=== PATIENT | male | born 1960 | race Caucasian/White ===

== ENCOUNTER 2019-03-03 11:48 | Emergency (ER) | payer OTHER ==
[2019-03-03] MEDS ORDERED: MECLIZINE HCL 12.5 MG TAB ONE (12:25)
[2019-03-03] MEDS ORDERED: ONDANSETRON 4 MG/2 ML VIAL ONE (12:25)
[2019-03-03] MEDS ORDERED: NA CHLORIDE 0.9% 1,000 ML ONE ×2 (12:25→13:58)
[2019-03-03 12:58] LABS: Basophils % 0.2 % (0-1.3); Hematocrit 40.8 % (39.6-49.0); Lymphocytes % 35.8 % (15.3-44.8); MPV 8.6 fL (7.6-11.3); RBC Red Blood Cell Count 4.63 M/uL (4.33-5.43)
[2019-03-03 13:12] LABS: BUN Blood Urea Nitrogen 23 mg/dL (7-18); Bicarbonate 19 mmol/L (21-32); Glucose Level 116 mg/dL (74-106); Potassium 3.6 mmol/L (3.5-5.1); Sodium Level 141 mmol/L (136-145); Troponin (Emerg Dept Use Only) < 0.02 ng/mL (0.0-0.045)
--- NOTE | 2019-03-03 14:09 | RAD REPORT ---
EXAM DESCRIPTION: CT - Head Brain Wo Cont - 03/03/2019 1:44 pm CLINICAL HISTORY: Dizziness, headache, syncope COMPARISON: None. TECHNIQUE: Axial 5 mm thick images of the head were obtained without IV contrast. All CT scans are performed using dose optimization technique as appropriate and may include automated exposure control or mA/KV adjustment according to patient size. FINDINGS: No intracranial hemorrhage, mass, edema or shift of mid-line structures. No acute infarcti on changes seen. No abnormal extra-axial fluid collections. Ventricles are normal. Mastoid air cells and visualized portions of the paranasal sinuses are clear. No acute bony findings. IMPRESSION: Negative non-contrast CT head examination.
--- NOTE | 2019-03-03 14:11 | RAD REPORT ---
EXAM DESCRIPTION: CT - Head angio - 03/03/2019 1:47 pm CLINICAL HISTORY: DIZZINESS, weakness, syncope TECHNIQUE: During dynamic enhancement using nonionic IV contrast, axial 1 millimeter thick images of the head were obtained. Sagittal and axial reconstruction images were generated using MIP technique and reviewed. All CT scans are performed using dose optimization technique as appropriate and may include automated exposure control or mA/KV adjustment according to patient size. FINDINGS: No aneurysm or vascular malformation identified. Major venous sinuses are patent. No stenosis, named branch occlusion, vasculitis or other significant vascular finding identifiable. IMPRESSION: Negative CT angio head examination.
--- NOTE | 2019-03-03 14:14 | RAD REPORT ---
EXAM DESCRIPTION: CT - Neck Angio - 03/03/2019 1:46 pm CLINICAL HISTORY: dizziness TECHNIQUE: During dynamic enhancement using nonionic IV contrast, axial 2 mm thick images of the nec k were obtained. Sagittal and axial reconstruction images were generated using MIP technique and revi ewed. All CT scans are performed using dose optimization technique as appropriate and may include automated exposure control or mA/KV adjustment according to patient size. COMPARISON: None FINDINGS: No aneurysm or vascular malformation identified. No carotid or vertebral dissection. No aortic arch or great vessel origin abnormality seen. Vertebral artery origins unremarkable as well . No significant stenosis, vasculitis or other significant carotid artery finding. No focal abnormali ty of either vertebral artery. Basilar artery is normal. IMPRESSION: Negative CT angio neck examination for acute or significant finding.
[2019-03-03 15:47] LABS: Urine Blood NEGATIVE (NEG); Urine Glucose NEGATIVE (NEG); Urine Protein NEGATIVE (NEG); Urine Specific Gravity >1.030 (1.005-1.030)
[2019-03-03 16:59] LABS: Potassium 4.4 mmol/L (3.5-5.1)
--- NOTE | 2019-03-03 17:10 | ER ---
Nurse's Notes [facility] Name: Boo Watkins Age: 58 yrs Sex: Male : 1960 Arrival Date: 03/03/2019 Time: 11:59 Bed 18 Private MD: Diagnosis: Vertigo;Dehydration;Acidosis Presentation: 03/03 11:52 Presenting complaint: EMS states: pt states he was sitting at work in a meeting, became tw2 lightheaded and says the room was spinning, he was diaphoretic when we got there, we started a line and gave about 450 ml NS, vs 149/115, hr 64 rr 16, ekg unremarkable. Transition of care: patient was not received from another setting of care. Onset of symptoms was March 03, 2019. Risk Assessment: Do you want to hurt yourself or someone else? Patient reports no desire to harm self or others. Initial Sepsis Screen: Does the patient meet any 2 criteria? No. Patient's initial sepsis screen is negative. Does the patient have a suspected source of infection? No. Patient's initial sepsis screen is negative. Care prior to arrival: Medication(s) given: Normal saline infusion, 450 ml IV initiated. 20 GA, in the left wrist. 11:52 Method Of Arrival: EMS: [facility] tw2 11:52 Acuity: NORI 2 tw2 Triage Assessment: 12:03 General: Appears in no apparent distress. uncomfortable, Behavior is calm, cooperative, jl7 appropriate for age. Pain: Denies pain. EENT: No deficits noted. Neuro: Level of Consciousness is awake, alert, obeys commands, Oriented to person, place, time, situation, Moves all extremities. Full function Speech is normal. Cardiovascular: Heart tones S1 S2 present Patient's skin is warm and dry. Respiratory: Airway is patent Respiratory effort is even, unlabored, Respiratory pattern is regular, symmetrical, Breath sounds are clear bilaterally. GI: Abd is soft and non tender X 4 quads. Reports nausea. : No signs and/or symptoms were reported regarding the genitourinary system. Derm: Skin is pink, warm \T\ dry. Musculoskeletal: No signs and/or symptoms reported regarding the musculoskeletal system. Historical: - Allergies: 12:02 No Known Allergies; tw2 - PMHx: 12:02 None; tw2 - PSHx: 12:02 None; tw2 - Immunization history:: Adult Immunizations unknown. - Social history:: Smoking status: Patient/guardian denies using tobacco. - Family history:: not pertinent. - Ebola Screening: : No symptoms or risks identified at this time. - Hospitalizations: : No recent hospitalization is reported. Screenin:00 Abuse screen: Denies threats or abuse. Denies injuries from another. Nutritional jl7 screening: No deficits noted. Tuberculosis screening: No symptoms or risk factors identified. Fall Risk IV access (20 points). Total Johnson Fall Scale indicates No Risk (0-24 pts). Assessment: 12:00 General: See triage assessment. jl7 12:05 Reassessment: Dr. Isidro at bedside. jl7 13:00 Reassessment: Patient appears in no apparent distress at this time. Patient and/or [facility] family updated on plan of care and expected duration. Pain level reassessed. Patient is alert, oriented x 3, equal unlabored respirations, skin warm/dry/pink. Patient states symptoms have improved. 14:06 Reassessment: Patient appears in no apparent distress at this time. No changes from jl7 previously documented assessment. Patient and/or family updated on plan of care and expected duration. Pain level reassessed. Patient is alert, oriented x 3, equal unlabored respirations, skin warm/dry/pink. Patient states feeling better. 15:00 Reassessment: Patient appears in no apparent distress at this time. Patient and/or jl7 family updated on plan of care and expected duration. Pain level reassessed. Patient is alert, oriented x 3, equal unlabored respirations, skin warm/dry/pink. Patient denies pain at this time. 16:00 Reassessment: Patient appears in no apparent distress at this time. No changes from jl7 previously documented assessment. Patient and/or family updated on plan of care and expected duration. Pain level reassessed. Patient is alert, oriented x 3, equal unlabored respirations, skin warm/dry/pink. Vital Signs: 12:03 BP 139 / 88; Pulse 57; Resp 13 S; Pulse Ox 98% on R/A; jl7 12:55 BP 147 / 94; Pulse 62; Resp 14 S; Temp 97.7(O); Pulse Ox 98% on R/A; Pain 0/10; jl7 14:07 BP 153 / 93; Pulse 66; Resp 16 S; Pulse Ox 100% on R/A; jl7 16:00 BP 157 / 97; Pulse 68; Resp 16 S; Pulse Ox 100% on R/A; jl7 ED Course: 11:59 Patient arrived in ED. tw2 12:00 Patient has correct armband on for positive identification. Placed in gown. Bed in low jl7 position. Call light in reach. Side rails up X2. monitoring coordinator on. Pulse ox on. NIBP on. Warm blanket given. 12:00 Maintain EMS IV. Dressing intact. Good blood return noted. Site clean \T\ dry. Gauge \T\ jl 7 site: 20 left wrist. 12:02 Triage completed. tw2 12:02 Chavez Isidro MD is Attending Physician. rn 12:03 Kvng Cope RN is Primary Nurse. jl7 12:03 Arm band placed on right wrist. jl7 12:30 Initial lab(s) drawn, by me, sent to lab. jl7 14:09 CT Head Brain wo Cont In Process Unspecified. EDMS 14:09 CT Head Angio In Process Unspecified. EDMS 14:09 CT Neck Angio In Process Unspecified. EDMS 15:41 Repeat lab(s) drawn. by me, sent to lab. jl7 16:55 Awaiting lab results. jl7 17:09 Trung Armas MD is Referral Physician. rn 17:31 No provider procedures requiring assistance completed. IV discontinued, intact, jl7 bleeding controlled, No redness/swelling at site. Pressure dressing applied. Administered Medications: 12:30 Drug: Meclizine 50 mg Route: PO; jl7 13:00 Follow up: Response: No adverse reaction; Marked relief of symptoms jl7 12:31 Drug: NS 0.9% 1000 ml Route: IV; Rate: 1000 ml; Site: left wrist; jl7 03/04 13:30 Follow up: Response: No adverse reaction; IV Status: Completed infusion; IV Intake: 7 1000ml 03/03 12:31 Drug: Zofran 4 mg Route: IVP; Site: left wrist; jl7 12:45 Follow up: Response: No adverse reaction; Nausea is decreased jl7 14:30 Drug: NS 0.9% 1000 ml Route: IV; Rate: 1000 ml; Site: left wrist; jl7 15:42 Follow up: Response: No adverse reaction; IV Status: Completed infusion; IV Intake: jl7 1000ml 17:09 CANCELLED (Other Intervention Used): Calcium Gluconate 1 grams IVPB once over 60 mins; aa5 (mix in NS 100 mL) 17:31 Drug: Calcium Carbonate 500 mg 2 tablet Route: PO; jl7 17:31 Follow up: Response: Medication administered at discharge. jl7 Intake: 15:42 IV: 1000ml; Total: 1000ml. jl7 03/04 13:30 IV: 1000ml; Total: 2000ml. jl7 Outcome: 03/03 17:09 Discharge ordered by . rn 17:31 Discharged to home ambulatory. jl7 17:31 Condition: stable 17:31 Discharge instructions given to patient, family, Instructed on discharge instructions, follow up and referral plans. medication usage, Demonstrated understanding of instructions, follow-up care, medications, Prescriptions given X 2. 17:32 Patient left the ED. jl7 Signatures: Dispatcher [employer] EDMS Chavez Isidro MD MD rn Wise, Tara, RN RN tw2 Kvng Cope RN RN jl7 Tamy Goins RN aa5
--- NOTE | 2019-03-03 17:11 | EDPHYS ---
Physician Documentation [facility] Name: Boo Watkins Age: 58 yrs Sex: Male : 1960 Arrival Date: 03/03/2019 Time: 11:59 Bed 18 Private MD: ED Physician Chavez Isidro HPI: 03/03 14:10 This 58 yrs old Male presents to ER via EMS with complaints of Dizziness, rn Lightheaded. 14:10 The patient presents with sense of spinning. Onset: The symptoms/episode began/occurred rn just prior to arrival. Context: occurred at work, occurred while the patient was at rest. Modifying factors: The symptoms are alleviated by nothing, the symptoms are aggravated by movement of head, standing up, changing position. Severity of symptoms: At their worst the symptoms were moderate in the emergency department the symptoms have improved. The patient has not experienced similar symptoms in the past. The patient has not recently seen a physician. Reports sudden onset of spinning sensation, lightheaded, assoc with nausea and vomiting, goes away when holding head still, worse with head movement or change in position, no head injury, no focal neuro complaint, no chest pain/sob/abd pain.. Historical: - Allergies: 12:02 No Known Allergies; tw2 - PMHx: 12:02 None; tw2 - PSHx: 12:02 None; tw2 - Immunization history:: Adult Immunizations unknown. - Social history:: Smoking status: Patient/guardian denies using tobacco. - Family history:: not pertinent. - Ebola Screening: : No symptoms or risks identified at this time. - Hospitalizations: : No recent hospitalization is reported. ROS: 14:10 Constitutional: Negative for fever, chills, and weight loss, Eyes: Negative for injury, rn pain, redness, and discharge, ENT: Negative for injury, pain, and discharge, Neck: Negative for injury, pain, and swelling, Cardiovascular: Negative for chest pain, palpitations, and edema, Respiratory: Negative for shortness of breath, cough, wheezing, and pleuritic chest pain, Abdomen/GI: Negative for abdominal pain, diarrhea, and constipation, Back: Negative for injury and pain, : Negative for injury, bleeding, discharge, and swelling, MS/Extremity: Negative for injury and deformity, Skin: Negative for injury, rash, and discoloration, Neuro: Negative for headache, weakness, numbness, tingling, and seizure. Exam: 14:10 Constitutional: This is a well developed, well nourished patient who is awake, alert, rn and in no acute distress. Head/Face: Normocephalic, atraumatic. Eyes: Pupils equal round and reactive to light, extra-ocular motions intact. Lids and lashes normal. Conjunctiva and sclera are non-icteric and not injected. Cornea within normal limits. Periorbital areas with no swelling, redness, or edema. ENT: dry MM Neck: Trachea midline, no thyromegaly or masses palpated, and no cervical lymphadenopathy. Supple, full range of motion without nuchal rigidity, or vertebral point tenderness. No Meningismus. Cardiovascular: Regular rate and rhythm with a normal S1 and S2. No pulse deficits. Respiratory: Lungs have equal breath sounds bilaterally, clear to auscultation. No increased work of breathing, no retractions or nasal flaring. Abdomen/GI: Soft, non-tender MS/ Extremity: Pulses equal, no cyanosis. Neurovascular intact. Full, normal range of motion. Equal circumference. Neuro: Awake and alert, GCS 15, oriented to person, place, time, and situation. Cranial nerves II-XII grossly intact. Motor strength 5/5 in all extremities. Sensory grossly intact. Cerebellar exam normal. Normal finger to nose and heel to kim. Vital Signs: 12:03 BP 139 / 88; Pulse 57; Resp 13 S; Pulse Ox 98% on R/A; jl7 12:55 BP 147 / 94; Pulse 62; Resp 14 S; Temp 97.7(O); Pulse Ox 98% on R/A; Pain 0/10; jl7 14:07 BP 153 / 93; Pulse 66; Resp 16 S; Pulse Ox 100% on R/A; jl7 16:00 BP 157 / 97; Pulse 68; Resp 16 S; Pulse Ox 100% on R/A; jl7 MDM: 12:02 Patient medically screened. rn 15:24 Differential diagnosis: cardiac arrhythmia, CVA, generalized weakness, rn hyperventilation, hypovolemia, idiopathic dizziness, near-syncope, TIA, vertigo. Data reviewed: vital signs, nurses notes. ED course: Pt feels much better, states urine has cleared up since fluids, and ambulatory without assistance to bathroom. NO further episodes, ct head and angio of head and neck no acute findings. + acidosis in original BMP but patient working a lot outdoors in heat lately, is remodeling house, and thinks has been dehydrated. Will repeat BMP now that fluids have finished. Plan on dc home with Dr. Pawel andrade/pawan . 17:07 Counseling: I had a detailed discussion with the patient and/or guardian regarding: the rn historical points, exam findings, and any diagnostic results supporting the discharge/admit diagnosis, lab results, radiology results, the need for outpatient follow up, to return to the emergency department if symptoms worsen or persist or if there are any questions or concerns that arise at home. Response to treatment: the patient's symptoms have resolved after treatment, the patient's condition has returned to base line, the patient is now symptom free, patient is well hydrated. and as a result, I will discharge patient. ED course: Bicarbonate returned to normal after IV hydration, hypocalcemia, given oral calcium, will dc home. . 03/03 12:09 Order name: CBC with Diff; Complete Time: 13:23 rn 03/03 12:09 Order name: Basic Metabolic Panel; Complete Time: 13:23 rn 03/03 12:09 Order name: Protime (+inr); Complete Time: 13:23 rn 03/03 12:09 Order name: Ptt, Activated; Complete Time: 13:23 rn 03/03 12:09 Order name: Troponin (emerg Dept Use Only); Complete Time: 13:23 rn 03/03 13:18 Order name: Glucose, Ancillary Testing; Complete Time: 13:23 EDMS 03/03 12:09 Order name: CT Head Brain wo Cont; Complete Time: 15:49 rn 03/03 12:09 Order name: CT Head Angio; Complete Time: 15:49 rn 03/03 12:09 Order name: CT Neck Angio; Complete Time: 15:49 rn 03/03 15:24 Order name: Basic Metabolic Panel; Complete Time: 17:05 rn 03/03 15:30 Order name: Urine Dipstick--Ancillary (enter results) 3 03/03 12:09 Order name: IV Start; Complete Time: 12:59 rn 03/03 12:09 Order name: EKG; Complete Time: 12:13 rn 03/03 12:09 Order name: EKG - Nurse/Tech; Complete Time: 12:12 rn 03/03 15:24 Order name: Urine Dipstick-Ancillary (obtain specimen); Complete Time: 15:32 rn Administered Medications: 12:30 Drug: Meclizine 50 mg Route: PO; 7 13:00 Follow up: Response: No adverse reaction; Marked relief of symptoms jl7 12:31 Drug: NS 0.9% 1000 ml Route: IV; Rate: 1000 ml; Site: left wrist; 7 09 13:30 Follow up: Response: No adverse reaction; IV Status: Completed infusion; IV Intake: jl7 1000ml 03/03 12:31 Drug: Zofran 4 mg Route: IVP; Site: left wrist; 7 12:45 Follow up: Response: No adverse reaction; Nausea is decreased jl7 14:30 Drug: NS 0.9% 1000 ml Route: IV; Rate: 1000 ml; Site: left wrist; 7 15:42 Follow up: Response: No adverse reaction; IV Status: Completed infusion; IV Intake: jl7 1000ml 17:09 CANCELLED (Other Intervention Used): Calcium Gluconate 1 grams IVPB once over 60 mins; aa5 (mix in NS 100 mL) 17:31 Drug: Calcium Carbonate 500 mg 2 tablet Route: PO; jl7 17:31 Follow up: Response: Medication administered at discharge. [facility] Disposition: 03/03/19 17:09 Discharged to Home. Impression: Vertigo, Dehydration, Acidosis. - Condition is Stable. - Discharge Instructions: Dehydration, Adult, Vertigo, Hypocalcemia, Adult, Metabolic Acidosis. - Prescriptions for Meclizine 25 mg Oral Tablet - take 1 tablet by ORAL route every 8 hours As needed; 30 tablet. Zofran ODT 4 mg Oral tablet,disintegrating - place 1 tablet by TRANSLINGUAL route every 8 hours As needed; 20 tablet. - Medication Reconciliation Form, Thank You Letter, Antibiotic Education, Prescription Opioid Use form. - Follow up: Trung Armas; When: As needed; Reason: Recheck today's complaints, Re-evaluation by your physician. - Problem is new. - Symptoms have improved. Signatures: Dispatcher [employer] EDMS Chavez Isidro MD MD rn Calderon, Audri RN RN aa5 Ada Chowdhury RN RN tw2 Kvng Cope RN RN jl7 Corrections: (The following items were deleted from the chart) 14:14 14:10 Constitutional: This is a well developed, well nourished patient who is awake, rn alert, and in no acute distress. Head/Face: Normocephalic, atraumatic. Eyes: Pupils equal round and reactive to light, extra-ocular motions intact. Lids and lashes normal. Conjunctiva and sclera are non-icteric and not injected. Cornea within normal limits. Periorbital areas with no swelling, redness, or edema. ENT: dry MM Neck: Trachea midline, no thyromegaly or masses palpated, and no cervical lymphadenopathy. Supple, full range of motion without nuchal rigidity, or vertebral point tenderness. No Meningismus. Cardiovascular: Regular rate and rhythm with a normal S1 and S2. No pulse deficits. Respiratory: Lungs have equal breath sounds bilaterally, clear to auscultation. No increased work of breathing, no retractions or nasal flaring. Abdomen/GI: Soft, non-tender MS/ Extremity: Pulses equal, no cyanosis. Neurovascular intact. Full, normal range of motion. Equal circumference. Neuro: Awake and alert, GCS 15, oriented to person, place, time, and situation. Cranial nerves II-XII grossly intact. Motor strength 5/5 in all extremities. Sensory grossly intact. Cerebellar exam normal. Normal finger to nose and heel to kim. asaf 17:09 17:05 Calcium Gluconate 1 grams IVPB once over 60 mins; (mix in NS 100 mL) ordered. asaf budren 17:09 17:09 Calcium Gluconate 1 grams IVPB once over 60 mins; (mix in NS 100 mL) ordered. jenise burden 17:32 17:09 03/03/2019 17:09 Discharged to Home. Impression: Vertigo; Dehydration; Acidosis. jl7 Condition is Stable. Discharge Instructions: Dehydration, Adult, Vertigo, Metabolic Acidosis. Prescriptions for Meclizine 25 mg Oral Tablet - take 1 tablet by ORAL route every 8 hours As needed; 30 tablet. and Forms are Medication Reconciliation Form, Thank You Letter, Antibiotic Education, Prescription Opioid Use. Follow up: Trung Armas; When: As needed; Reason: Recheck today's complaints, Re-evaluation by your physician. Problem is new. Symptoms have improved. rn
[2019-03-03] MEDS ORDERED: CALCIUM CARBONATE 500 MG TAB PO ONE (18:00)
--- NOTE | 2019-03-04 11:40 | EKG ---
Test Date: 2019-03-03 Test Time: 12:04:21 [employer]erglass Insulation Installer: OTILIA MEASUREMENT RESULTS: Intervals: Rate: 56 VA: 170 QRSD: 92 QT: 478 QTc: 461 [place]: P: 1 VA: 170 QRS: 48 T: 17 INTERPRETIVE STATEMENTS: Sinus bradycardia Otherwise normal ECG No previous ECG available for comparison Electronically Signed On 03-04-19 11:39:28 CDT by Masood Sandhu
== END 2019-03-03 17:32 | disposition home or self-care (01) ==
LOC: ER 11:48
DX: E86.0 Dehydration (principal); E87.2 Acidosis
CPT/HCPCS: 96361; 93005; 85025; 80048 ×2; 36415; 85610; 82962; 85730; 81003; 84484; 70450; 70496; 70498; 96374; 99284; Q9967; J7030 ×2; J2405